=== PATIENT | female | born 1955 | race Caucasian/White ===

== ENCOUNTER → 2017-06-08 07:17 | Outpatient (CLI) | payer BC, SELFPAY ==
--- NOTE | 2017-06-08 07:40 | RAD_ITS ---
STUDY: X-RAY - LUMBAR SPINE REASON FOR EXAM: Female, 61 years old. Right posterior back pain. No history of trauma. TECHNIQUE: 5 view(s) of the lumbar spine were obtained including oblique views. COMPARISON: None FINDINGS: Normal lumbar lordosis. There is no substantial scoliosis. There is a normal alignment of the vertebrae. There is multilevel endplate spondylosis of the lumbar vertebrae. There is multi-level degenerative disc disease with multi-level disc space narrowing. There is atherosclerotic calcification of the abdominal aorta without a demonstrated aneurysm. RAD/L/S Spine Min 4 Views IMPRESSION: Degenerative changes of the spine, as detailed above. Electronically Signed: Charles Mcneal MD at 9:59 EST Tel [phone], Service support ,
[2017-06-08 10:16] LABS: Absolute Lymphocyte Count 3.05 X10^3/ul (0.83-4.51); Absolute Neutrophil Count 4.9 X10^3/uL (2.0-7.7); Basophil# 0.03 X10^3/uL; Basophil% 0.3 % (0-1); Eosinophil# 0.12 X10^3/uL; Eosinophils% 1.4 % (0-5); Hematocrit 41.3 % (37-47); Hemoglobin 13.3 g/dl (12.0-15.0); Lymphocyte # 3.05 X10^3/ul (4.0); Lymphocyte % 35.2 % (19-41); Mean Corp Hgb Conc 32.2 g/gl (32-36); Mean Corpuscular Hgb 29.5 pg (27.0-32.0); Mean Corpuscular Volume 91.6 fL (81-99); Mean Platelet Vol. 11.4 fl (6.2-12.0); Monocyte# 0.51 X10^3/uL; Monocyte% 5.9 % (0-10); Neutrophil # 4.88 X10^3/uL (2.7-7.7); Neutrophil % 56.4 % (47-70); Platelet Count 251 K/mm3 (150-450); RBC Distribution Width CV 13.8 % (11.6-14.6); RBC Distribution Width SD 45.8 fl (35.1-43.9); Red Blood Count 4.51 M/mm3 (4.2-5.4); White Blood Count 8.7 K/mm3 (4.4-11.0)
[2017-06-08 10:18] LABS: POSITIVE COUNT NO; POSITIVE DIFFERENTIAL NO; POSITIVE MORPHOLOGY NO
[2017-06-08 10:45] LABS: ALB/GLOB Ratio 0.8 RATIO (0.9-2.4); AST(SGOT) 53 U/L (15-37); Alanine Aminotransfer ALT/SGPT 61 U/L (13-56); Albumin, Serum 3.4 g/dL (3.2-5.0); Alkaline Phosphatase 85 U/L (45-117); Anion Gap 10 (5-15); BUN 14 mg/dL (7-18); BUN/Creat Ratio 22.8 RATIO (10-20); Calcium,Total 8.7 mg/dL (8.5-10.1); Chloride 105 mmol/L (98-107); Cholesterol 171 mg/dL (200); Creatinine, Serum 0.61 mg/dL (0.55-1.02); EST Glomerular Filtration Rate 106 mL/min (>60); Est Glom Filt Rate - Afr Amer 128 mL/min (>60); Globulin 4.2 g/dL (2.2-4.2); Glucose 157 mg/dL (74-106); High Density Lipoprotein 42 mg/dL; Potassium 3.9 mmol/L (3.5-5.1); Protein, Total 7.6 g/dL (6.4-8.2); Sodium Level 140 mmol/L (136-145); Thyroid Stim Hormone (TSH) 2.48 uIU/mL (0.358-3.74); Triglycerides 192 mg/dL; Very Low Density Lipoprotein 38 mg/dL (5-40)
[2017-06-12 13:46] LABS: Hemoglobin A1c 6.9 % (4.2-6.3)
== END ==
PROVIDERS: Family Provider Family Medicine; PCP Family Medicine; Visit Provider Family Medicine
DX: M54.5 Low back pain (principal); R53.81 Other malaise; R53.83 Other fatigue; I25.10 Atherosclerotic heart disease of native coronary artery without angina pectoris; E78.5 Hyperlipidemia, unspecified
CPT/HCPCS: 36415; 72110; 80053; 80061; 83036; 84443; 85025

== ENCOUNTER → 2017-06-18 08:51 | Outpatient (CLI) | payer BC, SELFPAY ==
--- NOTE | 2017-06-18 08:56 | US_ITS ---
STUDY: ABDOMINAL ULTRASOUND - RIGHT UPPER QUADRANT REASON FOR VISIT: Female, 61 years old. Elevated liver enzymes. TECHNIQUE: Ultrasound evaluation of the right upper quadrant was performed with real-time and static reed-scale imaging. TECHNICAL QUALITY: Adequate. COMPARISON: None. FINDINGS: Liver: The liver is slightly enlarged and measures 19.5 cm. There is increased echogenicity consistent with fatty infiltration. The bile ducts are within normal limits. There is hepatic color flow. The direction of portal flow is hepatopetal. There is no demonstrated mass lesion. Gallbladder: Normal distended gallbladder. The gallbladder wall measures 2.9 mm. There is a negative sonographic Go's sign. There is no pericholecystic fluid. There are no gallstones. A small amount of sludge is seen within the gallbladder lumen. Common Bile Duct (C.B.D.): The common bile duct measures 4.3 mm. Pancreas: Normal size of the head, body and tail of the pancreas. There is increased echogenicity of the pancreas. There is no demonstrated pancreatic mass or cyst. Right Kidney: Normal size of the right kidney. The right kidney measures 13.0 cm x 7.3 cm x 6.0 cm. Normal renal cortex. The right cortex measures 1.2 cm. There is no demonstrated renal mass or cyst. There is no right hydronephrosis. US/Abdomen Limited IMPRESSION: Mild hepatomegaly and fatty infiltration of the liver. Small amount of sludge is seen within the gallbladder lumen. Electronically Signed: Charles Mcneal MD at 13:13 EST Tel [phone], Service support ,
== END ==
PROVIDERS: Family Provider Family Medicine; PCP Family Medicine; Visit Provider Family Medicine
DX: R79.89 Other specified abnormal findings of blood chemistry (principal); R74.8 Abnormal levels of other serum enzymes
CPT/HCPCS: 76705

== ENCOUNTER 2022-09-23 06:40 | Emergency (ER) | payer MEDICARE, BC, SELFPAY ==
[2022-09-23 06:41] VITALS: BP 160/85; PULSE 95; RESP 18; TEMP 36.4; O2SAT 94; BMI 43.1
--- NOTE | 2022-09-23 06:54 | US_ITS ---
STUDY: ABDOMINAL ULTRASOUND - RIGHT UPPER QUADRANT REASON FOR VISIT: Female, 66 years old. Pain TECHNIQUE: Ultrasound evaluation of the right upper quadrant was performed with real-time and static reed-scale imaging. TECHNICAL QUALITY: Adequate. COMPARISON: None. FINDINGS: Liver: The liver measures 24.1 cm. There is increased echogenicity consistent with fatty infiltration. The bile ducts are within normal limits. There is hepatic color flow. The direction of portal flow is hepatopetal. There is no demonstrated mass lesion. Gallbladder: Normal distended gallbladder. The gallbladder wall measures 3 mm. There is a negative sonographic Go''s sign. There is no pericholecystic fluid. There are no gallstones. There is sludge noted in the gallbladder. Common Bile Duct (C.B.D.): The common bile duct measures 4 mm. Pancreas: Normal size of the head, body and tail of the pancreas. There is normal echogenicity of the pancreas. There is no demonstrated pancreatic mass or cyst. Right Kidney: Normal size of the right kidney. The right kidney measures 13.7 cm. Normal renal cortex. There is no demonstrated renal mass or cyst. There is mild hydronephrosis of the right kidney. US/Gallbladder IMPRESSION: Mild right hydronephrosis with no cause identified on this study. Gallbladder sludge. Otherwise, unremarkable sonographic appearance of the gallbladder. Enlarged liver with fatty infiltration. Electronically Signed: Shaheen Cruz MD at 8:17 EDT ,
--- NOTE | 2022-09-23 06:55 | EDS_ITS ---
HPI HPI - GI History of Present Illness Chief Complaint: Abd Pain Detail of Chief Complaint: Right upper quadrant pain Informant: patient and spouse/S.O. Abdominal Pain/Flank Pain Onset: Today and Yesterday Context: Sudden Onset Timing: Continuous (Today's episode started at 0400 has been constant) and Intermittent (The day before patient states she had pain for 4 hours.) Quality: Aching Location: RUQ Current Severity: Moderate Maximum Severity: Severe Worsened by: Food (Believes hamburger and pulled pork) Relieved by: Nothing; Not Relieved By Antacids, Food or Remaining Still Nausea/Vomiting/Emesis GI Symptom: Positive for Nausea; Negative for Vomiting Diarrhea/Melena/Hematochezia GI Symptom: Negative for Diarrhea, Melena or Hematochezia Associated Symptoms Associated Symptoms: Negative for Dysuria, Frequency, Hematuria or Urgency Narrative Narrative: Patient is a 66-year-old woman with history of hiatal hernia/reflux on omeprazole who presents with right upper quadrant pain that occurred yesterday and today. The first episode occurred several hours after having hamburger. This episode awoke her from sleep at 0400. She had pulled pork for dinner. There is a family history cholelithiasis. She denies intolerance to greasy or fried foods prior to these 2 episodes of pain. She does report nausea without vomiting. She denies diarrhea, melena or hematochezia. She denies change in color, consistency or caliber of her stool. She denies any recent viral upper respiratory symptoms. Denies cough or shortness of breath. She denies dysuria, frequency, urgency or hematuria. There is no history of renal ureterolithiasis. She has never experienced pain like this before. She reports allergy to penicillin with swelling. She has no allergies to pain medicine. Prior similar symptoms: No Recent Illness/Hospitalization: No [facility], [facility] Medical History (Updated 09/23/22 @ 11:[address] Anibal Hagen MD) Hemorrhoids Knee pain Home Medications omeprazole 10 mg capsule,delayed release 10 mg PO DAILY 04/16/19 [History Last Taken Unknown] oxycodone-acetaminophen 5 mg-325 mg tablet 1 tab PO Q6H PRN PRN pain 5 days #20 TABLETS 09/23/22 [Rx Last Taken Unknown] Allergy/AdvReac Type Severity Reaction Status Date / Time Penicillins Allergy Swelling Verified 09/23/22 06:41 Family History (Updated 09/23/22 @ 06:[address] Anibal Hagen MD) Father Pancreatic cancer Mother Alzheimer disease Cholecystitis, acute Surgical History History of hysterectomy Social History (Updated 09/23/22 @ 06:[address] Anibal Hagen MD) household members: spouse Smoking Status: Never smoker alcohol intake: current alcohol intake frequency: holidays/special occasions only details: Patient reports occasional substance use type: does not use ROS ROS ED Constitutional Constitutional ED: Denies chills, fever(s), subjective, sweats or weight loss ENT ENT ED: Denies ear pain, rhinorrhea or sore throat Cardiovascular Cardiovascular: Denies chest pain, orthopnea, palpitations, paroxysmal nocturnal dyspnea or racing heartbeat Respiratory/Chest Respiratory/Chest: Denies cough, dyspnea, dyspnea on exertion, orthopnea or paroxysmal nocturnal dyspnea Gastrointestinal Gastrointestinal: Reports abdominal pain and nausea; Denies constipation, diarrhea, melena or vomiting Genitourinary Genitourinary ED: Denies dysuria, hematuria or urinary frequency Musculoskeletal Musculoskeletal: Denies arthralgias, back pain, myalgias or neck pain Integumentary Denies rash Neurologic Neurologic: Denies headache(s) Hematologic/Lymphatic Hematologic/Lymphatic: Denies easy bleeding or easy bruising EXAM Physical Exam Const Vital Signs: 09/23/22 06:41 09/23/22 09:00 Temperature 97.6 F L Temperature Source Oral Pulse Rate 95 89 Respiratory Rate 18 16 Blood Pressure 160/85 H 153/64 H Blood Pressure Mean 110 93 Pulse Ox 94 99 Oxygen Delivery Method Room Air Room Air Blood pressure is elevated. May be due to pain or undiagnosed hypertension. Positive well nourished, well developed and obese; Negative for cachectic or contractures General Appearance ED: well developed and NAD; Negative for cachectic, contractures or pallor Nutritional Appearance: obese; Negative for cachectic HEENT Reports moist mucous membranes normocephalic and atraumatic Eyes PERRL and EOMs intact bilaterally General Eye ED: Negative for pale conjunctiva or scleral icterus Neck no lymphadenopathy, supple and no JVD Resp normal respiratory effort and clear to auscultation bilaterally Cardio regular rate, regular rhythm, S1 normal heart sound and S2 normal heart sound GI no masses; Negative for non-tender or non-distended Inspection: abdominal distention Auscultation: hypoactive bowel sounds Palpation: soft and tender RUQ and Go's sign; Negative for hepatomegaly, splenomegaly, hernia, mass, pulsatile mass or rebound tenderness present Back/Spine no CVA tenderness Extremity full ROM General Extremety ED: Negative for edema or tenderness General Extremity: Negative for edema Neuro CN's II-XII intact bilaterally Sensorium / Orientation: alert Psych mental status grossly normal and thought process normal Skin General Skin Exam: Negative for jaundice or pallor Lesions: no lesions Rashes: no rashes MDM MDM MDM Narrative Medical decision making narrative: Patient presents with right upper quadrant pain that awoke her from sleep after having pulled pork the evening before. There is family history cholelithiasis. Suspect this is due to cholelithiasis with biliary colic. Will obtain appropriate blood work and ultrasound. Differential would include cholelithiasis with colic, cholecystitis, acute on chronic cholecystitis, renal calculi/hydronephrosis due to ureteral lithiasis. Doubt urinary tract infection. Doubt right lower lobe pneumonia since patient has no respiratory symptoms and lungs are clear to auscultation. Even though patient is distended and tympanitic doubt this is ileus or partial small bowel obstruction. IV was established. Patient was medicated with Zofran for nausea and 4 mg of morphine for her pain. History & Record Review Discussion w/independent historian: EMS personnel and Significant other Additional record(s) reviewed:: Prior outpatient record (2017 for update of health records) and Prior ED visit (2014 for esophagitis) Lab Data Attestation: I reviewed the patient's lab results. Lab results narrative: CBC is unremarkable. Hepatic profile reveals slight elevation in AST. Lipase is normal. Labs: Laboratory Results - last 24 hr 09/23/22 09/23/22 06:45 06:45 WBC 10.3 RBC 4.59 Hgb 14.0 Hct 42.1 MCV 91.7 MCH 30.5 MCHC 33.3 RDW Std Deviation 45.1 H RDW Coeff of Yonas 13.4 Plt Count 239 MPV 10.8 Immature Gran % (Auto) 0.900 Neut % (Auto) 60.6 Lymph % (Auto) 30.6 [place] % (Auto) 6.0 Eos % (Auto) 1.2 Baso % (Auto) 0.7 Absolute Neuts (auto) 6.3 Absolute Lymphs (auto) 3.16 Nucleated RBC % 0 Total Bilirubin 0.60 Direct Bilirubin 0.18 AST 50 H ALT 46 Alkaline Phosphatase 108 Total Protein 7.6 Albumin 3.4 Globulin 4.2 Lipase 50 Radiography Diagnostic Testing: Clinical Impression(s) from Imaging Studies Gallbladder Ultrasound 09/23/22 06:54 IMPRESSION: Mild right hydronephrosis with no cause identified on this study. Gallbladder sludge. Otherwise, unremarkable sonographic appearance of the gallbladder. Enlarged liver with fatty infiltration. Electronically Signed: Shaheen Cruz MD at 8:17 EDT , Abdomen/Pelvis CT 09/23/22 09:35 IMPRESSION: 2 mm stone in the right proximal ureter with moderate right hydronephrosis. No left-sided stones. No left-sided hydronephrosis. No bowel obstruction or inflammation. Normal appendix. Diverticulosis. Fatty liver. Distended gallbladder. No calcified gallstones. Electronically Signed: Shaheen Cruz MD at 10:38 EDT , Treatment and Re-Evaluation :: Patient was reassessed at 0748. She still having pain. 6 mg of morphine was ordered. She was informed of her laboratory results. She was informed that the radiologist has not read her ultrasound. I informed her that the gallbladder wall appears unremarkable. There appears to be sludge and may be evidence of cholelithiasis. Awaiting formal read. She was informed if radiologist agrees with my interpretation and her pain is managed she would be a candidate for outpatient follow-up with Dr. Grigsby. Patient was reassessed at 0832. Patient appears in more discomfort. We will administer additional dose of morphine and contact Dr. Duncan. Case was discussed with Dr. Duncan. She recommended Protonix. If there is no improvement 1 hour after IV bolus of Protonix plan is to admit otherwise discharge to home with appropriate outpatient follow-up Patient was noted to have mild hydronephrosis on the right with no evidence of renal calculi. Dr. Duncan is presently evaluating patient. Will obtain CT of the abdomen pelvis to evaluate for ureterolithiasis as the cause of her hydronephrosis. CT reveals a 2 mm proximal right ureteral stone with hydronephrosis. Patient was made aware of the CAT scan results. She will be discharged home. Discharge Plan Triage Chief Complaint: Abd Pain ED Provider: Anibal Hagen Dx/Rx/DC Orders Prescriptions: New oxycodone-acetaminophen [oxycodone-acetaminophen] 5-325 mg tablet 1 tab PO Q6H PRN PRN (Reason: pain) 5 Days Qty: 20 0RF No Action omeprazole 10 mg capsule,delayed release(DR/EC) 10 mg PO DAILY Primary Care Provider: Carolyn Sr Referrals: Freda Fernández MD [Med Staff - Active Staff] - 5-7 Days Carolyn Sr DO [Primary Care Provider] - As Needed Disposition Disposition: Home, Self Care
[2022-09-23] MEDS: Ondansetron 4 MG/2 ML Vial IV (07:10)
[2022-09-23] MEDS: Morphine 4 MG/ML Syringe IV (07:10)
[2022-09-23 07:15] LABS: Absolute Lymphocyte Count 3.16 X10^3/uL (0.83-4.51); Absolute Neutrophil Count 6.3 X10^3/uL (2.0-7.7); Basophil# 0.07 X10^3/uL; Basophil% 0.7 % (0-1); Eosinophil# 0.12 X10^3/uL; Eosinophils% 1.2 % (0-5); Hematocrit 42.1 % (37-47); Lymphocyte # 3.16 X10^3/ul (0.83-4.51); Lymphocyte % 30.6 % (19-41); Mean Corp Hgb Conc 33.3 g/dL (32-36); Mean Corpuscular Hgb 30.5 pg (27.0-32.0); Mean Corpuscular Volume 91.7 fL (81-99); Mean Platelet Vol. 10.8 fl (6.2-12.0); Monocyte# 0.62 X10^3/uL; NRBC Flagged by Analyzer 0 % (0-5); Neutrophil # 6.26 X10^3/uL (2.7-7.7); Neutrophil % 60.6 % (47-70); Platelet Count 239 K/mm3 (150-450); RBC Distribution Width CV 13.4 % (11.6-14.6); RBC Distribution Width SD 45.1 fl (35.1-43.9); Red Blood Count 4.59 M/mm3 (4.2-5.4); White Blood Count 10.3 K/mm3 (4.4-11.0)
[2022-09-23 07:31] LABS: AST(SGOT) 50 U/L (15-37); Alanine Aminotransfer ALT/SGPT 46 U/L (13-56); Albumin, Serum 3.4 g/dL (3.2-5.0); Alkaline Phosphatase 108 U/L (45-117); Bilirubin, Direct 0.18 mg/dL (0.00-0.30); Globulin 4.2 g/dL (2.2-4.2); Lipase 50 U/L (13-75); Protein, Total 7.6 g/dL (6.4-8.2)
[2022-09-23] MEDS: morphine 8 MG/ML Syringe 6 MG IV ×2 (07:55→08:53)
[2022-09-23 09:00] VITALS: BP 153/64; PULSE 89; RESP 16; O2SAT 99
--- NOTE | 2022-09-23 09:35 | CT_ITS ---
STUDY: CT ABDOMEN AND PELVIS WITHOUT CONTRAST REASON FOR EXAM: Female, 66 years old. Right flank pain. Evaluate for kidney stones. RADIATION DOSAGE (If Supplied By Facility): CTDIvol = ( 23.50 ) mGy, DLP = ( 1262.37 ) mGycm TECHNIQUE: Transaxial images were obtained from the dome of the diaphragm to the symphysis pubis without oral contrast, and without intravenous contrast. Sagittal and coronal images were reconstructed. Individualized dose optimization techniques were used for this CT. COMPARISON: None FINDINGS: Evaluation of the abdominal viscera is limited in the absence of intravenous contrast. LOWER THORAX: The visualized lung bases are clear. The visualized portions of the heart and pericardium are within normal limits. GALLBLADDER / BILE DUCTS: The gallbladder is distended. There are no calcified gallstones present. There is no intrahepatic biliary duct dilatation. The common bile duct is normal in caliber. There are no calcified ductal stones. LIVER: The liver is low in density, consistent with fatty infiltration. SPLEEN: The spleen is normal in size. PANCREAS: The pancreas demonstrates an unremarkable unenhanced appearance. ADRENAL GLANDS: The adrenal glands are within normal limits. KIDNEYS / BLADDER: There is a 2 mm stone in the right proximal ureter with moderate right hydronephrosis. There are no additional urinary calculi. There is no left hydronephrosis. There are no focal renal lesions identified on this noncontrast exam. The urinary bladder is partially distended and appears grossly unremarkable. STOMACH / BOWEL: Normal visualized stomach. There is no bowel obstruction or inflammation. There are colonic diverticula without evidence of diverticulitis. The appendix is visualized and appears normal. PERITONEUM / RETROPERITONEUM: There is no abdominal or pelvic free air, free fluid or fluid collection. There is no abnormal soft tissue mass identified. There is no abdominal or pelvic lymphadenopathy. VESSELS: The aorta is normal in caliber. The IVC is unremarkable. BONES: There are no destructive osseous lesions. SOFT TISSUES: The visualized soft tissues are within normal limits. CT/Abdomen/Pelvis without Cont IMPRESSION: 2 mm stone in the right proximal ureter with moderate right hydronephrosis. No left-sided stones. No left-sided hydronephrosis. No bowel obstruction or inflammation. Normal appendix. Diverticulosis. Fatty liver. Distended gallbladder. No calcified gallstones. Electronically Signed: Shaheen Cruz MD at 10:38 EDT ,
[2022-09-23 11:22] VITALS: BP 139/76; PULSE 78; RESP 16; O2SAT 99
--- NOTE | 2022-09-23 11:35 | CON.PCM.SX_ITS ---
Assessment & Plan Assessment/Plan (1) RUQ pain: (2) Sludge in gallbladder: (3) GERD (gastroesophageal reflux disease): (4) Hydronephrosis with urinary obstruction due to ureteral calculus: (5) Fatty liver: PLAN: Plan U/S personally reviewed as well as one from 2018-- also reviewed with pt and . doubt GB cause of RUQ pain has pain happened both times in the middle of the night (1 &4am) last ate about 7-8pm and also had velveeta sandwich mid day yesterday with no pain/n/v. Pt US did show mild hydroneph on the right. Pt getting CT a/p currently. no plans for general surgery intervention. Also d/w pt she does have a fatty liver and mild changes in LFT; strongly recommend healthy diet/exercise. HPI Consult Data Date of Consult: 09/23/22 HPI Narrative Reason for Consultation: GB sludge/RUQ pain HPI Narrative: WALLACE VIEIRA, is a 66 F who presents to ER for RUQ at 4 am this morning and she also had it at 1am yesterday AM but that resolved. pt rated the pain 10/10 and has several doses of morphine in ER, labs wnl, us showed GB sludge, mild right hydroneph, normal CBD, no pericholecystic fluid, wall 3mm---GB was similar in 2018. Pt had cheeseburger and pulled pork the nights before the pain at about 7-8pm; however also had cheese sandwich mid day with no pain or n/v. pt denies any hx of abd pain/n/v after eating. Pt states her GERD is controlled with omeprazole 10 mg po daily. COUNTS INCLUDE 234 BEDS AT THE [facility] Medical History (Updated 09/23/22 @ 11:[address] Karen Grigsby MD) Hemorrhoids Knee pain Home Medications omeprazole 10 mg capsule,delayed release 10 mg PO DAILY 04/16/19 [History Last Taken Unknown] oxycodone-acetaminophen 5 mg-325 mg tablet 1 tab PO Q6H PRN PRN pain 5 days #20 TABLETS 09/23/22 [Rx Last Taken Unknown] Allergy/AdvReac Type Severity Reaction Status Date / Time Penicillins Allergy Swelling Verified 09/23/22 06:41 Family History (Updated 09/23/22 @ 06:[address] Anibal Hagen MD) Father Pancreatic cancer Mother Alzheimer disease Cholecystitis, acute Surgical History History of hysterectomy Social History (Updated 09/23/22 @ 06:[address] Anibal Hagen MD) household members: spouse Smoking Status: Never smoker alcohol intake: current alcohol intake frequency: holidays/special occasions only details: Patient reports occasional substance use type: does not use ROS Constitutional Constitutional: Denies chills or fever(s) Eyes Eyes: Denies loss of vision ENT HEENT: Denies dysphagia Cardiovascular Cardiovascular: Denies chest pain Respiratory/Chest Respiratory/Chest: Denies cough Gastrointestinal Gastrointestinal: Reports abdominal pain, nausea and vomiting; Denies constipation or diarrhea Genitourinary Genitourinary: Denies dysuria Musculoskeletal Musculoskeletal: Denies joint swelling Integumentary Integumentary: Denies jaundice Neurologic Neurologic: Denies focal weakness Psychiatric Psychiatric: Denies anxiety Endocrine Endocrinology: Denies palpitations Hematologic/Lymphatic Hematologic/Lymphatic: Denies easy bleeding Physical Exam Const alert, oriented x3 and no apparent distress HEENT normocephalic and head/scalp atraumatic Resp normal respiratory effort Cardio regular rate GI soft to palpation; Negative for non-distended Palpation: tender RUQ (mild); Negative for guarding Bladder / Kidney Exam: no CVA tenderness Extremity no clubbing, cyanosis or edema Neuro CN's II-XII intact bilaterally Psych mental status grossly normal Lab / Micro Data Result Diagrams: 09/23/22 06:45 Labs: Laboratory Results - last 24 hr 09/23/22 06:45: WBC 10.3, RBC 4.59, Hgb 14.0, Hct 42.1, MCV 91.7, MCH 30.5, MCHC 33.3, RDW Std Deviation 45.1 H, RDW Coeff of Yonas 13.4, Plt Count 239, MPV 10.8, Immature Gran % (Auto) 0.900, Neut % (Auto) 60.6, Lymph % (Auto) 30.6, [place] % (Auto) 6.0, Eos % (Auto) 1.2, Baso % (Auto) 0.7, Absolute Neuts (auto) 6.3, Absolute Lymphs (auto) 3.16, Nucleated RBC % 0 09/23/22 06:45: Total Bilirubin 0.60, Direct Bilirubin 0.18, AST 50 H, ALT 46, Alkaline Phosphatase 108, Total Protein 7.6, Albumin 3.4, Globulin 4.2, Lipase 50 Radiology Impression Gallbladder Ultrasound 09/23/22 06:54 IMPRESSION: Mild right hydronephrosis with no cause identified on this study. Gallbladder sludge. Otherwise, unremarkable sonographic appearance of the gallbladder. Enlarged liver with fatty infiltration. Electronically Signed: Shaheen Cruz MD at 8:17 EDT , Abdomen/Pelvis CT 09/23/22 09:35 IMPRESSION: 2 mm stone in the right proximal ureter with moderate right hydronephrosis. No left-sided stones. No left-sided hydronephrosis. No bowel obstruction or inflammation. Normal appendix. Diverticulosis. Fatty liver. Distended gallbladder. No calcified gallstones. Electronically Signed: Shaheen Cruz MD at 10:38 EDT , Charges/Coding Visit Charges Office Visits / Consults: [id number] OP Consult L4
== END 2022-09-23 11:23 | disposition home or self-care (01) ==
PROVIDERS: Emergency Provider Emergency Medicine; PCP Family Medicine; Visit Provider Emergency Medicine
DX: N13.2 Hydronephrosis with renal and ureteral calculous obstruction (principal); K83.8 Other specified diseases of biliary tract; K76.0 Fatty (change of) liver, not elsewhere classified; K21.9 Gastro-esophageal reflux disease without esophagitis; Z79.899 Other long term (current) drug therapy
CPT/HCPCS: 74176; 76705; 80076; 83690; 85025; 96374; 96375; 96376; 99285; A4216; J2405; J3490

== ENCOUNTER → 2023-05-23 | Outpatient (CLI) | payer MEDICARE, BC, SELFPAY ==
[2023-05-23 12:29] LABS: Absolute Lymphocyte Count 3.65 X10^3/uL (0.83-4.51); Absolute Neutrophil Count 5.5 X10^3/uL (2.0-7.7); Basophil# 0.06 X10^3/uL; Basophil% 0.6 % (0-1); Eosinophil# 0.12 X10^3/uL; Eosinophils% 1.2 % (0-5); Hematocrit 42.4 % (37-47); Hemoglobin 13.7 g/dL (12.0-15.0); Lymphocyte # 3.65 X10^3/ul (0.83-4.51); Lymphocyte % 36.4 % (19-41); Mean Corp Hgb Conc 32.3 g/dL (32-36); Mean Corpuscular Hgb 29.7 pg (27.0-32.0); Monocyte# 0.59 X10^3/uL; Monocyte% 5.9 % (0-10); NRBC Flagged by Analyzer 0 % (0-5); Neutrophil # 5.54 X10^3/uL (2.7-7.7); Neutrophil % 55.2 % (47-70); Platelet Count 259 K/mm3 (150-450); RBC Distribution Width CV 13.5 % (11.6-14.6); RBC Distribution Width SD 45.2 fl (35.1-43.9); Red Blood Count 4.61 M/mm3 (4.2-5.4)
[2023-05-23 13:17] LABS: Microalbumin,Random Urine 19.8 mg/L (NO RANGE EST.); Microalbumin:Creatinine Ratio 24.4 mg/g CRE (<30 mg/g CRE)
[2023-05-23 13:40] LABS: ALB/GLOB Ratio 0.8 RATIO (0.9-2.4); AST(SGOT) 25 U/L (15-37); Alanine Aminotransfer ALT/SGPT 36 U/L (13-56); Albumin, Serum 3.4 g/dL (3.2-5.0); Alkaline Phosphatase 109 U/L (45-117); Anion Gap 3 (5-15); BUN 12 mg/dL (7-18); BUN/Creat Ratio 21.2 RATIO (10-20); Calcium,Total 9.6 mg/dL (8.5-10.1); Chloride 108 mmol/L (98-107); Cholesterol 190 mg/dL (200); Creatinine, Serum 0.56 mg/dL (0.55-1.02); EST Glomerular Filtration Rate 114 mL/min (>60); Est Glom Filt Rate - Afr Amer 138 mL/min (>60); Globulin 4.5 g/dL (2.2-4.2); Glucose 129 mg/dL (74-106); High Density Lipoprotein 51 mg/dL; Potassium 4.2 mmol/L (3.5-5.1); Protein, Total 7.9 g/dL (6.4-8.2); Sodium Level 136 mmol/L (136-145); Triglycerides 174 mg/dL; Very Low Density Lipoprotein 35 mg/dL (5-40)
== END | disposition home or self-care (01) ==
LOC: BFHLAB 09:21
PROVIDERS: PCP Family Medicine; Visit Provider Family Medicine
DX: E11.9 Type 2 diabetes mellitus without complications (principal); Z51.81 Encounter for therapeutic drug level monitoring
CPT/HCPCS: 36415; 80053; 80061; 82043; 82570; 85025

== ENCOUNTER → 2023-06-06 | Outpatient (CLI) | payer MEDICARE, BC, SELFPAY ==
--- NOTE | 2023-06-06 08:36 | BI_ITS ---
MAMMOGRAPHY - BILATERAL SCREENING REASON FOR EXAM: Female, 67 years old. Routine annual screening examination. PERTINENT HISTORY: Mother with breast cancer. History of prior right stereotactic breast biopsy. TECHNIQUE: Digital bilateral breast vernon (3D mammographic acquisition) in the CC and MLO projections. 2-D mediolateral oblique (MLO) and craniocaudad (CC) views of both breasts were obtained. CAD: Full Field Digital Mammography with Computer Added Detection was performed. COMPARISON: Comparison is made with prior study dated June 21, 2016 and May 21, 2013. FINDINGS: Breast Composition: There are scattered areas of fibroglandular density. There are no dominant masses or suspicious calcifications. Stable 1 cm x 1.1 cm nodular density in the central lateral aspect of the right breast. This was demonstrated to be a benign-appearing lymph node on the prior sonogram. No other significant abnormalities are identified. There has been no significant change since the prior study. BI/SCRN MAMM (CAD)W/VERNON BILAT IMPRESSION: Stable bilateral screening mammogram. Yearly follow-up mammogram recommended. (A) ASSESSMENT CATEGORY: BIRADS Category 2: Benign. A letter regarding these results will be sent to the patient by the facility within 30 days. Approximately 10% of breast cancers are not detected by mammography. A normal mammogram should not delay biopsy of a clinically suspicious abnormality. [id number] Electronically Signed: Charles Mcneal MD at 12:13 EST ,
== END | disposition home or self-care (01) ==
LOC: OPBI 08:35
PROVIDERS: PCP Family Medicine; Visit Provider Family Medicine
DX: Z12.31 Encounter for screening mammogram for malignant neoplasm of breast (principal); Z80.3 Family history of malignant neoplasm of breast
CPT/HCPCS: 77063; 77067

== ENCOUNTER → 2024-03-19 | Outpatient (CLI) | payer MEDICARE, BC, SELFPAY ==
--- NOTE | 2024-03-19 11:23 | RAD_ITS ---
STUDY: X-RAY CHEST REASON FOR EXAM: Female, 68 years old. SHORTNESS OF BREATH TECHNIQUE: PA and lateral views of the chest. COMPARISON: 08/04/2016 FINDINGS: The lungs are clear and expanded. There is no demonstrated pleural abnormality. Normal size heart. Normal mediastinum and laina. Normal visualized pulmonary arteries. Normal visualized aortic arch and descending thoracic aorta. Normal visualized thoracic spine. Normal visualized ribs, clavicles, and shoulders. There is no demonstrated abnormality of the visualized soft tissue structures of the upper abdomen. RAD/Chest PA and Lateral IMPRESSION: Normal x-ray examination of the chest. Electronically Signed: Greg Cano MD at 13:03 EST ,
== END | disposition home or self-care (01) ==
LOC: MTRAD 11:19
PROVIDERS: PCP Family Medicine; Referring Provider Family Medicine; Visit Provider Family Medicine
DX: R06.02 Shortness of breath (principal)
CPT/HCPCS: 71046

== ENCOUNTER → 2024-07-02 | Outpatient (CLI) | payer MEDICARE, BC, SELFPAY ==
[2024-07-02 12:38] LABS: Absolute Lymphocyte Count 3.37 X10^3/uL (0.83-4.51); Basophil# 0.05 X10^3/uL; Basophil% 0.5 % (0-1); Eosinophil# 0.16 X10^3/uL; Eosinophils% 1.6 % (0-5); Hematocrit 40.6 % (37-47); Hemoglobin 13.4 g/dL (12.0-15.0); Lymphocyte # 3.37 X10^3/ul (0.83-4.51); Lymphocyte % 33.2 % (19-41); Mean Corpuscular Hgb 29.3 pg (27.0-32.0); Mean Corpuscular Volume 88.8 fL (81-99); Mean Platelet Vol. 10.8 fl (6.2-12.0); Monocyte# 0.48 X10^3/uL; Monocyte% 4.7 % (0-10); NRBC Flagged by Analyzer 0 % (0-5); Neutrophil % 59.1 % (47-70); Platelet Count 261 K/mm3 (150-450); RBC Distribution Width CV 14.5 % (11.6-14.6); RBC Distribution Width SD 46.5 fl (35.1-43.9); Red Blood Count 4.57 M/mm3 (4.2-5.4); White Blood Count 10.2 K/mm3 (4.4-11.0)
[2024-07-02 13:17] LABS: AST(SGOT) 31 U/L (<=31); Alanine Aminotransfer ALT/SGPT 26 U/L (<=34); Albumin, Serum 4.2 g/dL (3.4-4.8); Alkaline Phosphatase 93 U/L (35-104); Anion Gap 14 (5-15); BUN 15 mg/dL (4-19); BUN/Creat Ratio 31.9 RATIO (10-20); Calcium,Total 9.6 mg/dL (7.6-11.0); Carbon Dioxide 21.9 mmol/L (21.0-32.0); Chloride 103 mmol/L (98-108); Cholesterol 181 mg/dL (<=200); Creatinine, Serum 0.48 mg/dL (0.70-1.20); EST Glomerular Filtration Rate 104 (>60); Free T3 3.2 pg/mL (2.18-3.98); Glucose 132 mg/dL (70-99); High Density Lipoprotein 45 mg/dL; Low Density Lipoprotein Calc. 97 mg/dL; Protein, Total 8.1 g/dL (5.9-8.4); Sodium Level 139 mmol/L (133-145); Total Bilirubin 0.61 mg/dL (0.00-1.30); Triglycerides 192 mg/dL; Very Low Density Lipoprotein 38 mg/dL (5-40); cholesterol:hdl ratio screen 3.99
[2024-07-02 15:49] LABS: Microalbumin,Random Urine 20.4 mg/L (NO RANGE EST.)
== END | disposition home or self-care (01) ==
LOC: BFHLAB 10:56
PROVIDERS: PCP Family Medicine; Visit Provider Family Medicine
DX: Z51.81 Encounter for therapeutic drug level monitoring (principal); E11.9 Type 2 diabetes mellitus without complications; R53.83 Other fatigue
CPT/HCPCS: 36415; 80053; 80061; 82043; 82570; 84439; 84443; 84481; 85025